=== PATIENT | female | born 2000 | race Caucasian/White ===

== ENCOUNTER 2020-12-25 11:04 | Emergency (ER) | payer OTHER, SELFPAY ==
--- NOTE | ~2020-12-25 | XR_ITS ---
EXAMINATION: XR chest 2V DATE: 12/25/2020 12:23 INDICATION: Cough and wheezing TECHNIQUE: PA and lateral views of the chest were obtained. COMPARISON: Chest radiograph dated 10/04/2019 FINDINGS: The lungs remain clear with no focal airspace opacities, pulmonary edema, pleural effusion or pneumot horax. The cardiomediastinal silhouette is normal. Visualized bones and soft tissues are unremarkable . IMPRESSION: 1. Normal chest radiograph Reviewed, dictated and finalized at location A. [facility] IMPRESSION: 1. Normal chest radiograph
[2020-12-25 11:10] VITALS: BP 121/83; PULSE 94; RESP 18; TEMP 36.8; O2SAT 100
[2020-12-25 11:59] LABS: Basophils Absolute Auto 0.1 K/mm3 (0.0-0.1); Basophils Percent Auto 0.9 % (0.2-1.2); Eosinophils Absolute Auto 0.5 K/mm3 (0-0.3); Eosinophils Percent Auto 9.4 % (0-4.4); Hemoglobin 14.2 g/dL (12.0-15.0); Immature Granulocyte Absolute 0.02 K/mm3 (0.00-0.031); Immature Granulocyte Percent A 0.4 % (0-0.5); Lymphocytes Absolute Auto 2.07 K/mm3 (0.9-3.2); Lymphocytes Percent Auto 36.6 % (18.3-44.2); Mean Corpuscular HGB Conc 33.8 g/dl (32-36); Mean Corpuscular Hemoglobin 28.5 pg (26-34); Mean Corpuscular Volume 84.3 fl (80-100); Monocytes Absolute Auto 0.4 K/mm3 (0.1-0.6); Monocytes Percent Auto 6.4 % (2.6-8.5); Neutrophils Absolute Auto 2.6 K/mm3 (1.3-6.7); Neutrophils Percent Auto 46.3 % (45.5-73.1); Platelet Count Result 223 k/mm3 (150-375); Red Blood Count 4.98 M/mm3 (4.2-5.4); Red Cell Distribution Width 13.7 % (11.5-14.5); White Blood Count 5.7 K/mm3 (4.5-10.0)
[2020-12-25] MEDS: ALBUTEROL SULFATE (*SP) AEROSOL 1 PUFF 4 PUFF INHALATION (12:28)
[2020-12-25] MEDS: DEXAMETHASONE 2 MG TABLET 10 MG PO (12:39)
--- NOTE | 2020-12-25 12:45 | ED.URI ---
HPI - URI/Sore Throat General Chief Complaint: Upper Respiratory Infection Stated Complaint: wheezing, cough Time Seen by Provider: 12/25/20 11:19 Source: patient Mode of arrival: ambulatory Limitations: no limitations History of Present Illness HPI Narrative: 20-year-old female Generally healthy takes no home meds Complains of a 3-day history of wheezing and a cough No fever, cough is essentially not productive there is just a little bit of clear phlegm intermittently She does not have a history of asthma that has been diagnosed, but she has had problems with wheezing in the past when she has had bronchitis or pneumonia Not a smoker Related Data Allergies Allergy/AdvReac Type Severity Reaction Status Date / Time No Known Allergies Allergy Verified 12/25/20 11:12 Review of Systems Review of Systems: All systems reviewed & are unremarkable except as noted in HPI and below Constitutional: Constitutional: Denies chills, Denies fatigue, Denies fever(s), Denies headache(s) and Denies weakness Eyes: Eyes: Reports no additional eye complaints and Denies change in vision ENT: Denies headache(s), Denies epistaxis, Reports nasal congestion and Denies sore throat Cardiovascular: Cardiovascular: Denies chest pain, Denies leg edema, Denies palpitations and Denies dyspnea Respiratory: Respiratory: Reports cough, Reports dyspnea and Reports wheezing Gastrointestinal: Gastrointestinal: Denies abdominal pain, Denies diarrhea, Denies nausea and Denies vomiting Genitourinary: Genitourinary: Denies hematuria, Denies urinary frequency and Denies dysuria Musculoskeletal: Musculoskeletal: Denies deformity, Denies arthralgias, Denies joint swelling, Denies muscle weakness and Denies numbness Integumentary/Breasts: Skin/Breast: Denies rash and Denies wounds Neurologic: Denies headache(s), Denies focal weakness, Denies numbness and Denies weakness Psychiatric: Psychiatric: Reports no additional psychiatric complaints Endocrine: Endocrine: Denies fatigue and Denies palpitations Hematologic/Lymphatic: Hematologic/Lymphatic: Denies easy bleeding and Denies easy bruising Allergic/Immunologic: Allergic/Immunologic: Denies wheezing PMFSH Past Medical History Medical History (Updated 12/25/20 @ 13:45 by Koko Dey MD) Migraine Pneumonia Pulmonary embolism Scoliosis UTI (urinary tract infection) Surgical History Surgical History (Updated 10/03/19 @ 23:11 by Kiet Marin) No history of previous surgery Family History Family History (Updated 10/04/19 @ 06:07 by Mayra Harris RN) Other Unknown family medical history Social History Social History (Updated 10/03/19 @ 23:12 by Kiet Marin) Smoking status: Never smoker Alcohol intake: current Drinks per week: 1 Substance use: current Substance use type: marijuana Last use: 1 week ago Gender identity (if verbalized by the patient): Female Spiritual care concerns: No Agree to blood products: Yes Exam Const: General: no acute distress, well developed, alert and awake Nutritional Appearance: well nourished Orientation/consciousness: patient oriented x3 (alert) Limitations: no limitations HENMT: Head: normocephalic and atraumatic Ears: external ears normal General nose exam: No nasal discharge present and no epistaxis Face and sinus: face symmetric Eyes: Conjunctivae: conjunctivae normal Sclera: sclerae normal EOM: EOMs intact bilaterally Neck: Neck: normal visual inspection, supple and no JVD Chest: Chest palpation & inspection: deferred Resp: Effort & Inspection: normal respiratory effort Auscultation: no rales, no rhonchi, wheezes and other (BS =) Cardio: Rate: regular rate Rhythm: regular rhythm Heart sounds: no gallops and no murmurs GI: Inspection: normal to inspection Back/Spine/Pelvis: Thoracic/Lumbar Spine: thoracic and lumbar spine normal to inspection Skin: General skin exam: normal color and
[2020-12-25 14:17] VITALS: BP 132/76; PULSE 77; RESP 16; O2SAT 100
== END 2020-12-25 14:20 | disposition home or self-care (01) ==
PROVIDERS: Emergency Provider Emergency Medicine
DX: J20.9 Acute bronchitis, unspecified (principal); D72.10 Eosinophilia, unspecified; Z87.11 Personal history of peptic ulcer disease; Z87.440 Personal history of urinary (tract) infections; M41.9 Scoliosis, unspecified
CPT/HCPCS: 36415; 71046; 85025; 99283; A9270; J8540

== ENCOUNTER 2021-02-10 09:34 | Emergency (ER) | payer OTHER, SELFPAY ==
[2021-02-10] VITALS (21 sets, daily range): BP systolic 117–139; BP diastolic 74–88; PULSE 72–134; RESP 12–27; TEMP 37.1; O2SAT 98–99
--- NOTE | ~2021-02-10 | CT_ITS ---
EXAMINATION: CTA chest PE protocol DATE: 02/10/2021 12:02 INDICATION: Chest pain. Shortness of breath. TECHNIQUE: Computed tomography angiography (CTA) of the chest was performed with 100 mL Omnipaque-350 intravenous contrast timed to evaluate the pulmonary arteries. Coronal maximum intensity projection 3D-reconstructions were created by the technologist. Automated exposure control and iterative reconst ruction technique were employed. The dose-length product was 313.62 mGy-cm. COMPARISON: Chest CT 10/04/2019 FINDINGS: There is minimal atelectasis bilaterally. There are mild groundglass opacities in the upper lobes. No pleural effusion. The heart size is normal. No pericardial effusion. There is no pulmonary embolus. The bones are unremarkable. IMPRESSION: 1. No pulmonary embolus. 2. Mild groundglass opacities in the upper lobes, consistent with inflammation versus infection. Reviewed, dictated and finalized at location A.
--- NOTE | ~2021-02-10 | XR_ITS ---
EXAMINATION: XR chest 1V portable EXAM DATE: 02/10/2021 10:14 INDICATION: Shortness of breath. TECHNIQUE: Portable AP frontal chest x-ray was obtained. Comparison is made to prior examination from 12/25/2020. FINDINGS: The lungs are clear. There are no pleural effusions. The cardiomediastinal silhouette is within normal limits. There is no pneumothorax suspected. The bones and soft tissues are unremarkab le. IMPRESSION: Normal chest x-ray exam. Reviewed, dictated and finalized at location A. IMPRESSION: Normal chest x-ray exam.
--- NOTE | 2021-02-10 09:42 | ECG_ITS ---
Measurements Intervals [place] Rate: 101 P: 68 KS: 143 QRS: 72 QRSD: 84 T: -3 QT: 341 QTc: 443 Interpretive Statements SINUS TACHYCARDIA BORDERLINE ST-T WAVE ABNORMALITY- INFERIOR LEADS BASELINE WANDER- II ,III, AVR, AVL, AVF, V1, V3 BORDERLINE ECG Electronically Signed On 02-10-2021 13:33:10 CDT by Serge Bryant D.O.
[2021-02-10 10:16] LABS: Basophils Absolute Auto 0.1 K/mm3 (0.0-0.1); Basophils Percent Auto 0.4 % (0.2-1.2); Eosinophils Absolute Auto 0.7 K/mm3 (0-0.3); Eosinophils Percent Auto 6.1 % (0-4.4); Hematocrit 44.1 % (37.0-47.0); Hemoglobin 14.8 g/dL (12.0-15.0); Immature Granulocyte Absolute 0.03 K/mm3 (0.00-0.031); Immature Granulocyte Percent A 0.3 % (0-0.5); Lymphocytes Absolute Auto 1.54 K/mm3 (0.9-3.2); Lymphocytes Percent Auto 13.7 % (18.3-44.2); Mean Corpuscular HGB Conc 33.6 g/dl (32-36); Mean Corpuscular Hemoglobin 28.7 pg (26-34); Mean Corpuscular Volume 85.5 fl (80-100); Mean Platelet Volume 11.4 fl (7.4-10.4); Monocytes Absolute Auto 0.7 K/mm3 (0.1-0.6); Monocytes Percent Auto 5.8 % (2.6-8.5); Neutrophils Absolute Auto 8.3 K/mm3 (1.3-6.7); Neutrophils Percent Auto 73.7 % (45.5-73.1); Platelet Count Result 220 k/mm3 (150-375); Red Blood Count 5.16 M/mm3 (4.2-5.4); Red Cell Distribution Width 13.6 % (11.5-14.5); White Blood Count 11.2 K/mm3 (4.5-10.0)
--- NOTE | 2021-02-10 10:19 | ED.SOB ---
HPI - SOB/Dyspnea General Chief Complaint: Shortness of Breath/Dyspnea Stated Complaint: SOB Time Seen by Provider: 02/10/21 09:55 Source: patient Mode of arrival: ambulatory Limitations: no limitations History of Present Illness HPI Narrative: This is a 20-year-old female that presents the emergency department for wheezing. Reports she had Covid in the beginning of October. Reports since she has had ongoing trouble with shortness of breath. Reports over the last couple of weeks she has become dependent on her albuterol inhaler. She has to use it every day because of shortness of breath and wheezing. Also reports a cough. Reports left-sided chest pain with deep breathing. Denies fever, congestion, or sore throat. Related Data Allergies Allergy/AdvReac Type Severity Reaction Status Date / Time No Known Allergies Allergy Verified 02/10/21 09:56 Review of Systems Review of Systems: Narrative: CONSTITUTIONAL: Denies fever ENT: Denies rhinorrhea, congestion, sore throat CARDIOVASCULAR: Reports chest pain. Denies edema. RESPIRATORY: Reports cough and dyspnea. All systems reviewed & are unremarkable except as noted in HPI and below PMFSH Past Medical History Medical History (Updated 02/10/21 @ 14:06 by Amina Kay PA-C) Migraine Pneumonia Pulmonary embolism Scoliosis UTI (urinary tract infection) Surgical History Surgical History (Updated 10/03/19 @ 23:11 by Kiet Marin) No history of previous surgery Family History Family History (Updated 10/04/19 @ 06:07 by Mayra Harris RN) Other Unknown family medical history Social History Social History (Updated 10/03/19 @ 23:12 by Kiet Marin) Smoking status: Never smoker Alcohol intake: current Drinks per week: 1 Substance use: current Substance use type: marijuana Last use: 1 week ago Gender identity (if verbalized by the patient): Female Spiritual care concerns: No Agree to blood products: Yes Exam Narrative: Exam Narrative: GENERAL: Well-appearing, well-nourished, and in no acute distress. HEAD: Normocephalic, atraumatic. EYES: EOMI. ENT: Nares clear, no rhinorrhea or epistaxis. Mucous membranes moist. Oropharynx without tonsillar hypertrophy exudate or other lesions. Bilateral TMs pearly chaidez non-bulging NECK: Supple. No adenopathy or masses. CHEST: No respiratory distress. Diffuse expiratory wheezing throughout the lungs bilaterally. No rales or rhonchi HEART: Regular rate and rhythm. No murmur heard. Normal peripheral pulses. EXTREMITIES: Normal range of motion. No edema. SKIN: Warm, dry, no rash. NEURO: No focal deficits. Alert and oriented x3. PSYCH: Normal mood and affect Course Vital Signs Vital signs: Vital Signs Temperature 98.7 F 02/10/21 09:52 Pulse Rate 104 H 02/10/21 09:52 Respiratory Rate 17 02/10/21 09:52 Blood Pressure 133/84 02/10/21 09:52 Pulse Oximetry 98 02/10/21 09:52 Temperature 98.7 F 02/10/21 09:52 Pulse Rate 134 H 02/10/21 13:30 Respiratory Rate 25 H 02/10/21 13:30 Blood Pressure 121/74 02/10/21 13:01 Pulse Oximetry 99 02/10/21 11:50 MDM - SOB/Dyspnea MDM Narrative Medical decision making narrative: Patient presents to the ER for shortness of breath and wheezing worsening over the last couple of weeks. She is afebrile and nontoxic-appearing. Tachycardic, likely due to albuterol use. CBC with mild leukocytosis to 11.2. Metabolic panel without concerning findings. Baseline troponin is negative and EKG is without concerning changes. Due to shortness of breath and tachycardia with history of PE, CTA of the chest was obtained. This did not show evidence of PE, but did show opacities in the upper lobes consistent with inflammation versus infection. Patient given steroid and nebulizer treatments with improvement. Feels better and would like to go home. Will be started on oral antibiotic for pneumonia and continued on steroid. Patient was in
[2021-02-10 10:26] LABS: INR 0.9; Prothrombin Time 12.7 Seconds (11.1-14.7)
[2021-02-10 10:27] LABS: Partial Thromboplastin Time 26.8 SECONDS (22.3-36.8)
[2021-02-10] MEDS: IPRATROPIUM BR 0.02% INH SOLN 0.5 MG/2.5 ML VIAL INHALATION ×3 (10:30→13:20)
[2021-02-10] MEDS: ALBUTEROL SULFATE NEB 2.5 MG/0.5 ML INH 5 MG INHALATION ×2 (10:30→12:08)
[2021-02-10] MEDS: predniSONE 20 MG TABLET 40 MG PO (10:31)
[2021-02-10 10:34] LABS: Anion Gap 7 mmol/L (8-16); Blood Urea Nitrogen 11 mg/dL (7-17); Carbon Dioxide 26 mmol/L (22-30); Chloride 106 mmol/L (98-107); Estimated CRCL calculation 109 ml/min; Estimated Glomerular Filt Rate > 60; Glucose 119 mg/dL (65-105); Potassium 3.6 mmol/L (3.4-5.0); Sodium 139 mmol/L (137-145)
[2021-02-10 10:44] LABS: Troponin I < 0.012 ng/mL (0.000-0.034)
[2021-02-10 10:46] LABS: D Dimer 0.33 ug/mL (<0.48)
--- NOTE | 2021-02-10 10:49 | PC.NURSE ---
Pt states she feels much better s/p med neb, non-labored resps, speaking full clear sentences, 98% RA. Last steroid therapy 1.5 month ago, I wasn't diagnosed with asthma, but I use the rescue inhaler for coughing fits, and last night I couldn't lie flat . Recovered from covid in [place]
[2021-02-10] MEDS: ACETAMINOPHEN 500 MG TABLET 1000 MG PO (12:10)
== END 2021-02-10 14:15 | disposition home or self-care (01) ==
PROVIDERS: Physician Assistant; Emergency Provider Emergency Medicine; PCP Internal Medicine
DX: J18.9 Pneumonia, unspecified organism (principal); J45.901 Unspecified asthma with (acute) exacerbation; R00.0 Tachycardia, unspecified
CPT/HCPCS: 36415; 71045; 71275; 80048; 81025; 84484; 85025; 85380; 85610; 85730; 93005; 94640; 99285; A9270; J7512; Q9967

== ENCOUNTER 2021-05-06 10:15 | Emergency (ER) | payer OTHER, SELFPAY ==
[2021-05-06 10:27] VITALS: BP 114/65; PULSE 80; RESP 16; TEMP 36.4; O2SAT 99
[2021-05-06 10:30] VITALS: BP 114/65; PULSE 80; RESP 16; TEMP 36.4; O2SAT 99
--- NOTE | 2021-05-06 10:37 | ED.GENADULT ---
HPI - General Adult General Chief complaint: Eye Problems Stated complaint: left eye redness Source: patient and RN notes reviewed Mode of arrival: ambulatory Limitations: no limitations History of Present Illness HPI narrative: 20-year-old female presents with complaints of left eye redness, irritation, some burning, and itching for 1 day. Willow reports awakened today with LT eye redness and crusted together, increasing redness. ?Slightly matted. ?No pain. ?No copious drainage. Exacerbating factor is eye opening. ?Relieving factors is closing eyes. ?Wear glasses and contact lenses, currently wearing glasses. ?No blurred vision, double vision, sensation of foreign body, or pain of eye with movement. ?LMP 04/11/21. Remains active. The patient reports she was diagnosed with COVID-19 in October 2020. ?The patient reports she received 1 VendAsta COVID-19 vaccine and is awaiting the 2nd dose now. ?The patient reports she is not waiting for the results of a COVID-19 lab test. ?The patient reports she does not have chills, weakness, or fatigue. ?The patient reports she does not have a new or worsening cough or shortness of breath. ?Denies chest pain. ?The patient reports she does not have any rhinorrhea, congestion, sore throat, loss of taste or smell, nausea, vomiting, abdominal pain, and diarrhea. ?Tolerating po intake well. ?Denies recent traveling. ?Denies concerns for COVID-19 or exposures. ?At this time, the patient is not suspected of having COVID-19. Some parts of this dictation were generated by voice recognition software and may contain typographical and/or grammatical inaccuracies. Related Data Home Medications Medication Instructions Recorded Confirmed valacyclovir 05/06/21 Allergies Allergy/AdvReac Type Severity Reaction Status Date / Time No Known Allergies Allergy Verified 02/10/21 09:56 Review of Systems Review of Systems: Narrative: CONSTITUTIONAL: Denies fever, chills, sweats. EYES: Denies visual changes. Complains of LT eye redness, itching, and irritation. ENT: Denies rhinorrhea, congestion, sore throat, otalgia. CARDIOVASCULAR: Denies chest pain, palpitations, edema. RESPIRATORY: Denies dyspnea, wheezing, cough. GASTROINTESTINAL: Denies abdominal pain, nausea, vomiting, diarrhea. SKIN: Denies rash or itching. MUSCULOSKELETAL: Denies acute back pain, joint pain, or myalgia. NEUROLOGIC: Denies numbness or focal weakness. PSYCHIATRIC: Denies anxiety or depression. All systems reviewed & are unremarkable except as noted in HPI and below. 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 Surgical History Surgical History No history of previous surgery Family History Family History (Updated 05/06/21 @ 12:32 by EDUARDO Alexandra) Father Diabetes mellitus Mother Alive and well Other Unknown family medical history Social History Social History (Updated 05/06/21 @ 12:33 by EDUARDO Alexandra) Smoking status: Never smoker Tobacco type: cigarettes Second hand tobacco smoke exposure: No Alcohol intake: current Drinks per week: 1 Substance use: current Substance use type: marijuana Last use: 1 week ago Living arrangements: with family Occupation/Education: occupation Gender identity (if verbalized by the patient): Female Sexual Orientation (if Verbalized by the Patient): Straight or Heterosexual Spiritual care concerns: No Agree to blood products: Yes Comments At time of signature, agree with the nurse past medical, surgical, social, and family history. There is no relevant family history pertinent to the presenting complaint. Exam Narrative: Exam Narrative: GENERAL: This is a well-nourished, well-de
== END 2021-05-06 10:55 | disposition home or self-care (01) ==
PROVIDERS: Emergency Provider Nurse Practitioner Family
DX: H10.32 Unspecified acute conjunctivitis, left eye (principal); J00 Acute nasopharyngitis [common cold]; J01.90 Acute sinusitis, unspecified; Z86.711 Personal history of pulmonary embolism; M41.9 Scoliosis, unspecified
CPT/HCPCS: 99213; G0463

== ENCOUNTER 2021-05-14 08:32 | Outpatient (CLI) | payer OTHER, SELFPAY ==
--- NOTE | ~2021-05-14 | US_ITS ---
EXAMINATION: US thyroid EXAM DATE: 05/14/2021 08:48 INDICATION: Thyroid nodule TECHNIQUE: Multiple grayscale and Doppler images of the thyroid were obtained (by a technologist who performed the scan) and subsequently reviewed. Individual nodules and recommendations may be reporte d in accordance with TI-RADS system as designated by the 2017 ACR White Paper TI-RADS committee. The re is no prior study for comparison. FINDINGS: Right there are lobe measures 5.0 x 2.1 x 1.9 cm, the left measuring 3.8 x 1.4 x 1.2 cm. There is miladis ogeneous thyroid echogenicity. There is a right thyroid lobe nodule measuring 1.7 x 1.6 x 1.6, solid (2 points), hypoechoic (2 point s), equal in height and width, ill-defined margin, containing punctate echogenic foci consistent with microcalcification (3 points), category TR5 for this nodule. IMPRESSION: Suspicious right thyroid lobe nodule; recommend ultrasound-guided biopsy. Reviewed, dictated and finalized at location B. IMPRESSION: Suspicious right thyroid lobe nodule; recommend ultrasound-guided b iopsy.
== END 2021-05-14 08:33 ==
PROVIDERS: PCP Internal Medicine; Visit Provider Nurse Practitioner
DX: E04.1 Nontoxic single thyroid nodule (principal)
CPT/HCPCS: 76536

== ENCOUNTER 2021-06-02 04:45 | Emergency (ER) | payer OTHER, SELFPAY ==
[2021-06-02] VITALS (8 sets, daily range): BP systolic 106–128; BP diastolic 73–86; PULSE 74–93; RESP 13–26; TEMP 36.6; O2SAT 96–100
--- NOTE | ~2021-06-02 | XR_ITS ---
EXAMINATION: XR chest 1V portable DATE: 06/02/2021 05:52 INDICATION: Shortness of breath and asthma TECHNIQUE: frontal view of the chest was obtained. COMPARISON: Chest radiograph and CT dated 02/10/21 FINDINGS: The lungs remain clear with no focal airspace opacities, pulmonary edema, pleural effusion or pneumot horax. The cardiomediastinal silhouette is normal. Visualized bones and soft tissues are unremarkable . IMPRESSION: 1. Normal chest radiograph. Reviewed, dictated and finalized at location A. IMPRESSION: 1. Normal chest radiograph.
[2021-06-02] MEDS: methylPREDNISolone SOD SUCC 125 MG VIAL IV PUSH (05:37)
--- NOTE | 2021-06-02 05:37 | ED.GENADULT ---
HPI - General Adult General Chief complaint: Asthma Stated complaint: can't breathe Time Seen by Provider: 06/02/21 05:28 History of Present Illness HPI narrative: Patient is a 20-year-old female presents the emergency department chief complaint of shortness of breath. The patient reports that she has had some episodes before in the past where she has been treated with albuterol treatments and reports over the last 2 days she has been wheezing at home patient states that a little bit of a cough but no significant productive sputum. Patient states that no fever no runny nose sore throat. Patient denies body aches abdominal pain vomiting or diarrhea. Patient reports symptoms are worse with deep inspiration and improved with rest. The patient denies use of cigarettes or vaping but does report to occasional use of marijuana with the last use on Tuesday. Related Data Home Medications Medication Instructions Recorded Confirmed valacyclovir 05/06/21 Allergies Allergy/AdvReac Type Severity Reaction Status Date / Time No Known Allergies Allergy Verified 06/02/21 04:52 Review of Systems Review of Systems: A 10 system review of systems was completed on the patient and is negative except for what is stated in the HPI. Nursing and ancillary documentation was reviewed. 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 Surgical History Surgical History No history of previous surgery Family History Family History Father Diabetes mellitus Mother Alive and well Other Unknown family medical history Social History Social History Smoking status: Never smoker Tobacco type: cigarettes Second hand tobacco smoke exposure: No Alcohol intake: current Drinks per week: 1 Substance use: current Substance use type: marijuana Last use: 1 week ago Gender identity (if verbalized by the patient): Female Spiritual care concerns: No Agree to blood products: Yes Exam Narrative: GENERAL: Well-appearing, well-nourished, and in no acute distress. HEAD: Normocephalic, atraumatic. EYES: PERRLA and EOMI. ENT: Nares clear, no rhinorrhea or epistaxis. Mucous membranes moist. NECK: Supple. CHEST: Inspiratory next Tory wheezes present bilaterally. No respiratory distress. HEART: Regular rate and rhythm. No murmur heard. Normal peripheral pulses. ABDOMEN: Soft, nontender, nondistended, normal active bowel sounds. EXTREMITIES: Normal range of motion. No edema. SKIN: Warm, dry, no rash. NEURO: No focal deficits. Alert and oriented x3. PSYCH: Normal mood and affect. Course Vital Signs Vital signs: Vital Signs Temperature 36.6 C 06/02/21 04:49 Pulse Rate 91 06/02/21 04:49 Respiratory Rate 25 H 06/02/21 04:49 Blood Pressure 128/86 06/02/21 04:49 Pulse Oximetry 99 06/02/21 04:49 Temperature 36.6 C 06/02/21 04:49 Pulse Rate 74 06/02/21 06:01 Respiratory Rate 16 06/02/21 06:01 Blood Pressure 106/84 06/02/21 06:01 Pulse Oximetry 99 06/02/21 06:27 Medical Decision Making Vital Signs Vital Signs: Vital Signs Temperature 36.6 C 06/02/21 04:49 Pulse Rate 91 06/02/21 04:49 Respiratory Rate 25 H 06/02/21 04:49 Blood Pressure 128/86 06/02/21 04:49 Pulse Oximetry 99 06/02/21 04:49 Temperature 36.6 C 06/02/21 04:49 Pulse Rate 74 06/02/21 06:01 Respiratory Rate 16 06/02/21 06:01 Blood Pressure 106/84 06/02/21 06:01 Pulse Oximetry 99 06/02/21 06:27 Discharge Plan Discharge Clinical Impression: Asthma with acute exacerbation Qualifiers: Asthma s
[2021-06-02] MEDS: IPRATROPIUM BR 0.02% INH SOLN 0.5 MG/2.5 ML VIAL INHALATION (05:51)
[2021-06-02] MEDS: ALBUTEROL SULFATE NEB 2.5 MG/0.5 ML INH 5 MG INHALATION (05:51)
== END 2021-06-02 06:52 | disposition home or self-care (01) ==
PROVIDERS: Emergency Provider Emergency Medicine; PCP Internal Medicine
DX: J45.901 Unspecified asthma with (acute) exacerbation (principal)
CPT/HCPCS: 71045; 94640; 96374; 99284; J2930

== ENCOUNTER 2021-07-27 19:33 | Emergency (ER) | payer OTHER, SELFPAY ==
--- NOTE | ~2021-07-27 | XR_ITS ---
EXAMINATION: XR chest 2V DATE: 07/27/2021 20:03 INDICATION: Productive cough and shortness of breath TECHNIQUE: PA and lateral views of the chest are obtained. COMPARISON: 06/02/2021 FINDINGS: The lungs are free of acute opacities. There is no pleural effusion or pneumothorax. The ca rdiomediastinal silhouette is normal. The visualized bones and soft tissues are unremarkable. IMPRESSION: 1. No acute cardiopulmonary abnormality. Reviewed, dictated and finalized at location A.
[2021-07-27 19:44] VITALS: BP 132/88; PULSE 100; RESP 20; TEMP 36.6; O2SAT 97
[2021-07-27] MEDS: ALBUTEROL SULFATE NEB 2.5 MG/0.5 ML INH 5 MG INHALATION ×2 (21:49→23:00)
[2021-07-27 21:50] VITALS: PULSE 119; RESP 16
[2021-07-27] MEDS: IPRATROPIUM BR 0.02% INH SOLN 0.5 MG/2.5 ML VIAL INHALATION ×2 (21:50→23:00)
[2021-07-27 21:55] VITALS: PULSE 99; RESP 16
[2021-07-27] MEDS: predniSONE 20 MG TABLET 40 MG PO (21:58)
--- NOTE | 2021-07-27 22:09 | ED.URI ---
HPI - URI/Sore Throat General Chief Complaint: Upper Respiratory Infection Stated Complaint: shortness of breath Time Seen by Provider: 07/27/21 21:26 Source: patient Mode of arrival: ambulatory Limitations: no limitations History of Present Illness HPI Narrative: This is a 20 year old female that presents to the ER for cold symptoms x 3 days. Reports cough, congestion, sore throat. Reports she has been wheezing. She has been using her albuterol inhaler with little relief. Denies fever. Related Data Home Medications Medication Instructions Recorded Confirmed valacyclovir 05/06/21 Allergies Allergy/AdvReac Type Severity Reaction Status Date / Time No Known Allergies Allergy Verified 07/27/21 21:25 Review of Systems Review of Systems: CONSTITUTIONAL: Denies fever ENT: Reports rhinorrhea, congestion, sore throat CARDIOVASCULAR: Denies chest pain RESPIRATORY: Reports cough 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 Surgical History Surgical History No history of previous surgery Family History Family History Father Diabetes mellitus Mother Alive and well Other Unknown family medical history Social History Social History Smoking status: Never smoker Tobacco type: cigarettes Second hand tobacco smoke exposure: No Alcohol intake: current Drinks per week: 1 Substance use: current Substance use type: marijuana Last use: 1 week ago Gender identity (if verbalized by the patient): Female Sexual Orientation (if Verbalized by the Patient): Straight or Heterosexual Spiritual care concerns: No Agree to blood products: Yes Exam Narrative: GENERAL: Well-appearing, well-nourished, and in no acute distress. HEAD: Normocephalic, atraumatic. EYES: EOMI. ENT: Nares clear, no rhinorrhea or epistaxis. Mucous membranes moist. Oropharynx without tonsillar hypertrophy exudate or other lesions. Bilateral TMs pearly chaidez non-bulging NECK: Supple. No adenopathy or masses. CHEST: No respiratory distress. Scattered expiratory wheezes noted. No rales or rhonchi HEART: Regular rate and rhythm. No murmur heard. Normal peripheral pulses. EXTREMITIES: Normal range of motion. No edema. SKIN: Warm, dry, no rash. NEURO: No focal deficits. Alert and oriented x3. PSYCH: Normal mood and affect Course Vital Signs Vital signs: Vital Signs Temperature 97.8 F 07/27/21 19:44 Pulse Rate 100 07/27/21 19:44 Respiratory Rate 20 07/27/21 19:44 Blood Pressure 132/88 07/27/21 19:44 Pulse Oximetry 97 07/27/21 19:44 Temperature 97.8 F 07/27/21 19:44 Pulse Rate 96 07/27/21 23:06 Respiratory Rate 16 07/27/21 23:06 Blood Pressure 132/88 07/27/21 19:44 Pulse Oximetry 97 07/27/21 19:44 MDM - URI/Sore Throat MDM Narrative Medical decision making narrative: Patient presents to the emergency department for cold symptoms present over the last couple of days. She did have a negative Covid test today. She is afebrile and nontoxic-appearing. Oxygen saturation is normal on room air. Wheezing noted upon arrival. This cleared with steroid and nebulizer treatments. Chest x-ray is without acute cardiopulmonary abnormality. Patient will be treated with continued oral steroids and albuterol for asthma exacerbation. She is to follow-up with her primary care doctor. She was given warnings to return to the ER Imaging Data Radiologist's impression: ITS Impressions Chest X-Ray 07/27/21 20:07 IMPRESSION: 1. No
[2021-07-27 23:01] VITALS: PULSE 82; RESP 16
[2021-07-27 23:06] VITALS: PULSE 96; RESP 16
[2021-07-27 23:27] VITALS: BP 126/75; PULSE 70; RESP 18; O2SAT 99
== END 2021-07-27 23:29 | disposition home or self-care (01) ==
PROVIDERS: Emergency Provider Emergency Medicine; PCP Internal Medicine
DX: J45.21 Mild intermittent asthma with (acute) exacerbation (principal); Z87.01 Personal history of pneumonia (recurrent); Z87.440 Personal history of urinary (tract) infections; F17.210 Nicotine dependence, cigarettes, uncomplicated
CPT/HCPCS: 71046; 94640; 99284; J7512

== ENCOUNTER 2021-10-30 09:44 | Emergency (ER) | payer OTHER, SELFPAY ==
[2021-10-30 10:04] VITALS: BP 122/87; PULSE 105; RESP 14; TEMP 36.1; O2SAT 97
[2021-10-30 11:50] VITALS: BP 121/78; PULSE 89; RESP 14; O2SAT 95
== END 2021-10-30 11:50 | disposition left against medical advice (07) ==
PROVIDERS: PCP Internal Medicine
DX: Z53.21 Procedure and treatment not carried out due to patient leaving prior to being seen by health care provider (principal)
CPT/HCPCS: 99199

== ENCOUNTER 2021-11-01 23:54 | Emergency (ER) | payer OTHER, SELFPAY ==
[2021-11-01 23:56] VITALS: BP 116/75; PULSE 109; RESP 20; TEMP 37; O2SAT 100
--- NOTE | 2021-11-02 00:44 | ED.GENADULT ---
HPI - General Adult General Chief complaint: Asthma Stated complaint: Asthma, need refill, wheezing Time Seen by Provider: 11/02/21 00:26 Source: patient and RN notes reviewed Limitations: no limitations History of Present Illness HPI narrative: 21-year-old female presented to the emergency department for evaluation of wheezing which she believes is secondary to an asthma exacerbation. Patient does have asthma and has been out of her inhaler for the last few days. Patient began experiencing some shortness of breath and wheeze this evening. Patient states she does smoke marijuana but has not smoked recently. Patient denies smoking cigarettes. Related Data Home Medications Medication Instructions Recorded Confirmed valacyclovir 05/06/21 Allergies Allergy/AdvReac Type Severity Reaction Status Date / Time No Known Allergies Allergy Verified 11/02/21 01:01 Review of Systems Review of Systems: All systems reviewed & are unremarkable except as noted in HPI and below Constitutional: Constitutional: Reports no additional constitutional complaints Eyes: Eyes: Reports no additional eye complaints ENT: Reports system reviewed and no additional complaints, except as documented Cardiovascular: Cardiovascular: Reports no additional cardiovascular complaints Respiratory: Respiratory: Denies cough, Reports dyspnea and Reports wheezing Gastrointestinal: Gastrointestinal: Reports no additional gastrointestinal complaints Musculoskeletal: Musculoskeletal: Reports no additional musculoskeletal complaints Integumentary/Breasts: Skin/Breast: Reports system reviewed and no additional complaints, except as docu Neurologic: Reports system reviewed and no additional complaints, except as documented Psychiatric: Psychiatric: Reports no additional psychiatric complaints Endocrine: Endocrine: Reports no additional endocrine complaints Hematologic/Lymphatic: Hematologic/Lymphatic: Reports no additional hematologic/lymphatic complaints Allergic/Immunologic: Allergic/Immunologic: Reports no additional allergic/immunologic complaints FOR[facility], LAT[facility] Past Medical History Medical History HSV-1 (herpes simplex virus 1) infection Migraine Pneumonia Pulmonary embolism Scoliosis UTI (urinary tract infection) 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 Surgical History Surgical History No history of previous surgery Family History Family History Father Diabetes mellitus Mother Alive and well Other Unknown family medical history Social History Social History Smoking status: Never smoker Tobacco type: cigarettes Second hand tobacco smoke exposure: No Alcohol intake: current Drinks per week: 1 Substance use: current Substance use type: marijuana Last use: 1 week ago Gender identity (if verbalized by the patient): Female Sexual Orientation (if Verbalized by the Patient): Straight or Heterosexual Spiritual care concerns: No Agree to blood products: Yes Exam Narrative: APPEARANCE: Well appearing, no pain in distress, well-nourished. HEAD: normocephalic, atraumatic. EYES: PERRLA/EOMI, conjunctivae clear. NOSE: Normal no drainage EARS:TMS clear with good light reflex. THROAT: Pharynx clear, no exudate. NECK: Supple. No adenopathy, no masses. RESPIRATORY: Airway patent, respirations nonlabored. Patient does have wheezing bilaterally. CARDIOVASCULAR: Regular rate and rhythm without murmurs rubs or gallops. ABDOMINAL: Soft, nontender, nondistended, normal bowel sounds MUSCULOSKELETAL: Moves all extremities. Strength/ROM intact, No edema, No calf tenderness. NEURO: Alert. Cranial nerves II through XII intact. Good gait. Good coordination SKIN: Warm, dry. Normal Color PSYCHIATRIC:
[2021-11-02 01:00] VITALS: PULSE 79; RESP 20
[2021-11-02] MEDS: ALBUTEROL SULFATE NEB 2.5 MG/0.5 ML INH 5 MG INHALATION (01:00)
[2021-11-02 01:08] VITALS: PULSE 77; RESP 20
== END 2021-11-02 02:36 | disposition home or self-care (01) ==
LOC: ANHED 11-02 01:31
PROVIDERS: Emergency Provider Emergency Medicine; PCP Internal Medicine
DX: J45.21 Mild intermittent asthma with (acute) exacerbation (principal); Z86.711 Personal history of pulmonary embolism; Z87.440 Personal history of urinary (tract) infections; Z87.01 Personal history of pneumonia (recurrent)
CPT/HCPCS: 94640; 99283

== ENCOUNTER 2021-11-16 08:45 | Emergency (ER) | payer OTHER, SELFPAY ==
[2021-11-16 09:01] VITALS: BP 106/75; PULSE 77; RESP 18; TEMP 36; O2SAT 99
--- NOTE | 2021-11-16 09:25 | ED.FEMALEGU ---
HPI - Female Genitourinary General Chief complaint: Urogenital-Female Stated complaint: Yeast Infection Time Seen by Provider: 11/16/21 09:25 Source: patient, RN notes reviewed and old records reviewed Mode of arrival: ambulatory Limitations: no limitations History of Present Illness HPI Narrative: 21-year-old female presents to the [facility] care with concerns of a yeast infection. Has been having chronic yeast infections for the last couple months and has been working with Dr. Jorge. Currently waiting on a EXAMINER RATING CLERK from [facility] opinion. Has been given antibiotics along with Diflucan and terconazole in the past. Patient reports extreme irritation, thick white discharge. Has been try to get all her EXAMINER RATING CLERK since Tuesday for a prescription for that to her, as well Fevers, nausea, vomiting or diarrhea. No chest pain or shortness of breath. No abdominal pain. MD elicited complaint: vaginal discharge (thichk white) Related Data Home Medications Medication Instructions Recorded Confirmed valacyclovir 05/06/21 Allergies Allergy/AdvReac Type Severity Reaction Status Date / Time No Known Allergies Allergy Verified 11/16/21 09:34 Review of Systems Review of Systems: All systems reviewed & are unremarkable except as noted in HPI and below Constitutional: Constitutional: Reports no additional constitutional complaints, Denies chills and Denies fatigue Eyes: Eyes: Reports no additional eye complaints ENT: Reports system reviewed and no additional complaints, except as documented Cardiovascular: Cardiovascular: Reports no additional cardiovascular complaints Respiratory: Respiratory: Reports no additional respiratory complaints Gastrointestinal: Gastrointestinal: Reports no additional gastrointestinal complaints, Denies abdominal pain, Denies diarrhea, Denies nausea and Denies vomiting Genitourinary: Genitourinary: Reports as per HPI, Denies hematuria, Denies nocturia, Denies genital lesions, Denies dysuria, Denies pelvic pain, Denies flank pain and Reports vaginal discharge Comments: Vaginal discomfort Musculoskeletal: Musculoskeletal: Reports no additional musculoskeletal complaints and Denies back pain Integumentary/Breasts: Skin/Breast: Reports system reviewed and no additional complaints, except as docu Neurologic: Reports system reviewed and no additional complaints, except as documented Psychiatric: Psychiatric: Reports no additional psychiatric complaints Endocrine: Endocrine: Reports no additional endocrine complaints and Denies fatigue Allergic/Immunologic: Allergic/Immunologic: Reports no additional allergic/immunologic complaints PMFSH Past Medical History Medical History HSV-1 (herpes simplex virus 1) infection Migraine Pneumonia Pulmonary embolism Scoliosis UTI (urinary tract infection) 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 Surgical History Surgical History No history of previous surgery Family History Family History Father Diabetes mellitus Mother Alive and well Other Unknown family medical history Social History Social History Smoking status: Never smoker Tobacco type: cigarettes Second hand tobacco smoke exposure: No Alcohol intake: current Drinks per week: 1 Substance use: current Substance use type: marijuana Last use: 1 week ago Gender identity (if verbalized by the patient): Female Sexual Orientation (if Verbalized by the Patient): Straight or Heterosexual Spiritual care concerns: No Agree to blood products: Yes Comments At the time of my signature, I reviewed and agree with the nursing past medical, surgical, social, and family history. There is no relevant family history pertinent to the patient complaint. Exam Const: General: healthy appearing, no a
== END 2021-11-16 09:45 | disposition home or self-care (01) ==
PROVIDERS: Emergency Provider Nurse Practitioner; PCP Internal Medicine
DX: B37.3 Candidiasis of vulva and vagina (principal); Z86.711 Personal history of pulmonary embolism
CPT/HCPCS: 99213; G0463

== ENCOUNTER 2022-02-02 15:36 | Emergency (ER) | payer OTHER, SELFPAY ==
[2022-02-02 15:43] VITALS: BP 129/80; PULSE 76; RESP 16; TEMP 36.3; O2SAT 100
--- NOTE | 2022-02-02 15:43 | ED.URI ---
HPI - URI/Sore Throat General Chief Complaint: Upper Respiratory Infection Stated Complaint: sore throat Time Seen by Provider: 02/02/22 15:43 Source: patient, family, RN notes reviewed and old records reviewed Mode of arrival: ambulatory Limitations: no limitations History of Present Illness HPI Narrative: 21-year-old female presents to the [facility] with complaints of a sore throat for 2 days. Wants to be checked for strep. Denies any other symptoms. No ear pain, nose pain, runny nose, shortness of breath. Denies chest pain or abdominal pain. No nausea vomiting or diarrhea. Denies fevers MD elicited complaint: sore throat Related Data Allergies Allergy/AdvReac Type Severity Reaction Status Date / Time No Known Allergies Allergy Verified 02/02/22 15:39 Review of Systems Review of Systems: All systems reviewed & are unremarkable except as noted in HPI and below Constitutional: Constitutional: Reports no additional constitutional complaints, Denies chills, Denies fever(s) and Denies headache(s) Eyes: Eyes: Reports no additional eye complaints ENT: Reports as per HPI, Denies vertigo, Denies dizziness, Denies headache(s), Denies nasal congestion and Reports sore throat Cardiovascular: Cardiovascular: Reports no additional cardiovascular complaints, Denies chest pain, Denies syncope, Denies rapid heart rate and Denies dyspnea Respiratory: Respiratory: Reports no additional respiratory complaints, Denies cough, Denies dyspnea and Denies wheezing Gastrointestinal: Gastrointestinal: Reports no additional gastrointestinal complaints, Denies abdominal pain, Denies diarrhea, Denies nausea and Denies vomiting Musculoskeletal: Musculoskeletal: Reports no additional musculoskeletal complaints and Denies numbness Integumentary/Breasts: Skin/Breast: Reports system reviewed and no additional complaints, except as docu Neurologic: Reports system reviewed and no additional complaints, except as documented, Denies vertigo, Denies dizziness, Denies syncope, Denies headache(s), Denies focal weakness and Denies numbness Psychiatric: Psychiatric: Reports no additional psychiatric complaints Allergic/Immunologic: Allergic/Immunologic: Reports no additional allergic/immunologic complaints and Denies wheezing PMFSH Past Medical History Medical History HSV-1 (herpes simplex virus 1) infection Migraine Pneumonia Pulmonary embolism Scoliosis UTI (urinary tract infection) 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 Surgical History Surgical History No history of previous surgery Family History Family History Father Diabetes mellitus Mother Alive and well Other Unknown family medical history Social History Social History Smoking status: Never smoker Tobacco type: cigarettes Second hand tobacco smoke exposure: No Alcohol intake: current Drinks per week: 1 Substance use: current Substance use type: marijuana Last use: 1 week ago Gender identity (if verbalized by the patient): Female Sexual Orientation (if Verbalized by the Patient): Straight or Heterosexual Spiritual care concerns: No Agree to blood products: Yes Comments At the time of my signature, I reviewed and agree with the nursing past medical, surgical, social, and family history. There is no relevant family history pertinent to the patient complaint. Exam Const: General: cooperative, healthy appearing, no acute distress, well developed and alert Nutritional Appearance: well nourished Orientation/consciousness: patient oriented x3 Limitations: no limitations HENMT: Head: normal to inspection General nose exam: Normal external nose present and Normal nasal mucous membranes and turbinates present Face and sinus: normal facial exam Mouth: Yes Normal
== END 2022-02-02 16:10 | disposition home or self-care (01) ==
PROVIDERS: Emergency Provider Nurse Practitioner; PCP Internal Medicine
DX: B34.9 Viral infection, unspecified (principal); F12.90 Cannabis use, unspecified, uncomplicated; M41.9 Scoliosis, unspecified; Z86.711 Personal history of pulmonary embolism
CPT/HCPCS: 87081; 87880; 99213; G0463

== ENCOUNTER 2022-03-08 07:41 | Emergency (ER) | payer OTHER, SELFPAY ==
[2022-03-08] VITALS (9 sets, daily range): BP systolic 115–123; BP diastolic 78–86; PULSE 75–114; RESP 10–22; TEMP 37.1; O2SAT 95–99
[2022-03-08] MEDS: ALBUTEROL SULFATE NEB 2.5 MG/0.5 ML INH 5 MG INHALATION (07:55)
[2022-03-08] MEDS: IPRATROPIUM BR 0.02% INH SOLN 0.5 MG/2.5 ML VIAL INHALATION (07:56)
[2022-03-08] MEDS: predniSONE 20 MG TABLET 60 MG PO (07:57)
--- NOTE | 2022-03-08 09:31 | ED.ASTHMA ---
HPI - Asthma General Chief Complaint: Asthma Stated Complaint: asthma Time Seen by Provider: 03/08/22 07:48 Source: patient Mode of arrival: ambulatory Limitations: no limitations History of Present Illness HPI Narrative: 21-year-old with a history of asthma here with complaints of shortness of breath for past 1 day. Patient states that she ran out of her inhaler. She denies any fever or chills has occasional nonproductive cough. complaint: asthma attack Onset (ago): day(s) (1) Severity: moderate Associated symptoms: none Asthma History: childhood onset Related Data Current Asthma Therapy: none Allergies Allergy/AdvReac Type Severity Reaction Status Date / Time No Known Allergies Allergy Verified 02/02/22 15:39 Review of Systems Review of Systems: All systems reviewed & are unremarkable except as noted in HPI and below Constitutional: Constitutional: Reports no additional constitutional complaints Eyes: Eyes: Reports no additional eye complaints ENT: Reports system reviewed and no additional complaints, except as documented Cardiovascular: Cardiovascular: Reports no additional cardiovascular complaints Respiratory: Respiratory: Reports as per HPI Gastrointestinal: Gastrointestinal: Reports no additional gastrointestinal complaints Musculoskeletal: Musculoskeletal: Reports no additional musculoskeletal complaints PMFSH Past Medical History Medical History HSV-1 (herpes simplex virus 1) infection Migraine Pneumonia Pulmonary embolism Scoliosis UTI (urinary tract infection) 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 Surgical History Surgical History No history of previous surgery Family History Family History Father Diabetes mellitus Mother Alive and well Other Unknown family medical history Social History Social History Smoking status: Never smoker Tobacco type: cigarettes Second hand tobacco smoke exposure: No Alcohol intake: current Drinks per week: 1 Substance use: current Substance use type: marijuana Last use: 1 week ago Gender identity (if verbalized by the patient): Female Sexual Orientation (if Verbalized by the Patient): Straight or Heterosexual Spiritual care concerns: No Agree to blood products: Yes Exam Narrative: GENERAL: Well-appearing, well-nourished, and in no acute distress. HEAD: Normocephalic, atraumatic. EYES: PERRLA and EOMI. NECK: Supple. CHEST: No acute respiratory distress, bilateral expiratory wheeze HEART: Regular rate and rhythm. No murmur heard. Normal peripheral pulses. ABDOMEN: Soft, nontender, nondistended, normal active bowel sounds. EXTREMITIES: Normal range of motion. No edema. SKIN: Warm, dry, no rash. NEURO: No focal deficits. Alert and oriented x3. PSYCH: Normal mood and affect. Course Course Emergency Course: Patient did receive 1 DuoNeb and steroids here in the ER. She is feeling much better area auscultated her lungs good air entry very minimal bilateral wheeze. She states she is feeling much better. Vital Signs Vital signs: Vital Signs Temperature 37.1 C 03/08/22 07:46 Pulse Rate 93 03/08/22 07:46 Respiratory Rate 20 03/08/22 07:46 Pulse Oximetry 98 03/08/22 07:46 Temperature 37.1 C 03/08/22 07:46 Pulse Rate 86 03/08/22 08:20 Respiratory Rate 15 03/08/22 08:20 Blood Pressure 115/80 03/08/22 08:20 Pulse Oximetry 99 03/08/22 08:20 Discharge Plan Discharge Clinical Impression: Asthma exacerbation Patient Disposition: Home, Self-Care Condition: Stable Instructions: Asthma (ED) Additional Instructions: Use inhalers as prescribed and prednisone twice a day for 5 days, follow-up with your primary doctor. Prescriptions: New prednisone 20 mg tablet 20 mg PO B
== END 2022-03-08 09:49 | disposition home or self-care (01) ==
PROVIDERS: Emergency Provider Family Medicine; PCP Internal Medicine
DX: J45.901 Unspecified asthma with (acute) exacerbation (principal); Z86.711 Personal history of pulmonary embolism; Z87.01 Personal history of pneumonia (recurrent); Z87.440 Personal history of urinary (tract) infections
CPT/HCPCS: 94640; 99283; J7512

== ENCOUNTER 2022-07-22 01:54 | Emergency (ER) | payer OTHER, SELFPAY ==
[2022-07-22] VITALS (14 sets, daily range): BP systolic 108–138; BP diastolic 65–85; PULSE 94–124; RESP 16–29; TEMP 36.8–38.2; O2SAT 98–100
--- NOTE | ~2022-07-22 | XR_ITS ---
EXAMINATION: XR chest 2V DATE: 07/22/2022 05:21 INDICATION: Fever. TECHNIQUE: Frontal and lateral views of the chest were obtained. COMPARISON: Chest 2 views 07/27/2021, chest CT 02/10/2021 FINDINGS: The chest demonstrates clear lungs without pneumonia, pleural effusion, or pneumothorax. Th e heart size is normal. IMPRESSION: 1. No acute cardiopulmonary disease. Reviewed, dictated and finalized at location A.
--- NOTE | 2022-07-22 02:05 | ED.GENADULT ---
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 Surgical History Surgical History No history of previous surgery Family History Family History Father Diabetes mellitus Mother Alive and well Other Unknown family medical history Social History Social History Smoking status: Never smoker Tobacco type: cigarettes Second hand tobacco smoke exposure: No Alcohol intake: current Drinks per week: 1 Substance use: current Substance use type: marijuana Last use: 1 week ago Gender identity (if verbalized by the patient): Female Sexual Orientation (if Verbalized by the Patient): Straight or Heterosexual Spiritual care concerns: No Agree to blood products: Yes Course Vital Signs Vital signs: Vital Signs Temperature 100.8 F H 07/22/22 01:55 Pulse Rate 108 H 07/22/22 01:55 Respiratory Rate 07/22/22 01:55 Blood Pressure 132/81 07/22/22 01:55 Pulse Oximetry 07/22/22 01:55 Oxygen Delivery Room Air 07/22/22 01:55 Temperature 100.8 F H 07/22/22 01:55 Pulse Rate 108 H 07/22/22 01:55 Respiratory Rate 07/22/22 01:55 Blood Pressure 132/81 07/22/22 01:55 Pulse Oximetry 07/22/22 01:55 Oxygen Delivery Room Air 07/22/22 01:55 Medical Decision Making Vital Signs Vital Signs: Vital Signs Temperature 100.8 F H 07/22/22 01:55 Pulse Rate 108 H 07/22/22 01:55 Respiratory Rate 07/22/22 01:55 Blood Pressure 132/81 07/22/22 01:55 Pulse Oximetry 07/22/22 01:55 Oxygen Delivery Room Air 07/22/22 01:55 Temperature 100.8 F H 07/22/22 01:55 Pulse Rate 108 H 07/22/22 01:55 Respiratory Rate 18 07/22/22 01:55 Blood Pressure 132/81 07/22/22 01:55 Pulse Oximetry 99 07/22/22 01:55 Oxygen Delivery Room Air 07/22/22 01:55 Discharge Plan Discharge Prescriptions: No Action albuterol sulfate 90 mcg/actuation HFA aerosol inhaler 2 puff inhalation QID PRN (Reason: shortness of breath or wheezing) Qty: 1 0RF prednisone 20 mg tablet 20 mg PO BID Qty: 10 0RF albuterol sulfate 90 mcg/actuation HFA aerosol inhaler 2 puff inhalation QID PRN (Reason: shortness of breath or wheezing) Qty: 8.5 4RF Follow-up/Referrals: Cody,MD Tonya [Primary Care Provider] -
[2022-07-22 03:43] LABS: Hematocrit 42.8 % (37.0-47.0); Hemoglobin 14.6 g/dL (12.0-15.0); Mean Corpuscular HGB Conc 34.1 g/dl (32-36); Mean Corpuscular Hemoglobin 28.9 pg (26-34); Mean Corpuscular Volume 84.6 fl (80-100); Mean Platelet Volume 11.3 fl (7.4-10.4); Platelet Count Result 152 k/mm3 (150-375); Red Blood Count 5.06 M/mm3 (4.2-5.4); Red Cell Distribution Width 12.6 % (11.5-14.5); White Blood Count 4.3 K/mm3 (4.5-10.0)
[2022-07-22 03:47] LABS: Appearance Urine Slightly Cloudy (Clear); Bilirubin Urine Negative (Negative); Color Urine Yellow (Yellow); Glucose Urine UA Negative (Negative); Ketones Urine Negative (Negative); Leukocyte Esterase Ur Trace LEU/UL (Negative); Nitrate Urine Negative (Negative); Protein Urine Negative (Negative); Specific Grav Ur 1.025 (1.001-1.035); Urobilinogen Urine 0.2 mg/dL (<2.0); pH Urine 5.5 (5.0-9.0)
[2022-07-22 03:53] LABS: Alanine Aminotransferase 70 U/L (6-35); Albumin Level 4.3 g/dL (3.5-5.1); Alkaline Phosphatase 71 U/L (38-126); Anion Gap 14 mmol/L (8-16); Aspartate Amino Transferase 80 U/L (14-36); Bilirubin,Total 0.7 mg/dL (0.2-1.3); Blood Urea Nitrogen 6 mg/dL (7-17); Calcium 8.5 mg/dL (8.4-10.2); Carbon Dioxide 18 mmol/L (22-30); Chloride 101 mmol/L (98-107); Estimated CRCL calculation 98 ml/min; Estimated Glomerular Filt Rate > 60; Glucose 109 mg/dL (65-110); Mucus Urine Rare /lpf; Potassium 3.7 mmol/L (3.4-5.0); RBC Urine 0-2 /hpf (0-2); Sodium 133 mmol/L (137-145); Squamous Epithelial Cell Urine Few /hpf (Few)
[2022-07-22 03:54] LABS: Lactic Acid Reflex 1.1 mmol/L (0.7-2.0)
[2022-07-22 04:07] LABS: Add Urine Microscopic? YES; Blood Urine Trace-Intact (Negative)
[2022-07-22 04:15] LABS: Band Neutrophils Percent 37 % (0-6); Basophils Absolute Manual 0.04 K/mm3 (0.0-0.1); Basophils Percent Manual 1 % (0-1); Metamyelocytes Percent 3 %; Monocytes Absolute Manual 0.08 K/mm3 (0.1-0.90); Monocytes Percent Manual 2 % (3-9); Neutrophils Absolute Manual 3.44 K/mm3 (1.7-7.2); Neutrophils Percent Manual 43 % (46-73); Platelet Estimate Adequate (Adequate); Total Cells Counted 100
[2022-07-22 04:16] LABS: Atypical Lymphocytes Present; Smudge Cells FEW
[2022-07-22 04:17] LABS: Crenated RBC 1+ (NORMAL); Schistocytes None Seen (NORMAL)
[2022-07-22 04:21] LABS: Influenza A QL RT-PCR Negative (Negative); Influenza B QL RT-PCR Negative (Negative); SARS-CoV-2 RNA PCR Negative
--- NOTE | 2022-07-22 04:33 | ED.FEVER ---
HPI - Fever General Chief Complaint: Fever Stated Complaint: migraine 2 days, chills, tingling fingers Time Seen by Provider: 07/22/22 03:57 Source: patient and RN notes reviewed Mode of arrival: ambulatory Limitations: no limitations History of Present Illness HPI Narrative: This is a 21 year old female who presents for evaluation of multiple complaints. Patient has had headache for 2 days that has been constant. She describes headache as a severe migraine. She has associated tingling to both hands. She also has nausea, chills and bilateral lower back pain. She has been taking hot showers because she feels like she can not get warm. She denies sore throat, runny nose, abdominal pain, cough or shortness of breath. She took tylenol last night around 10 pm. She took at home covid test that was negative. Related Data Allergies Allergy/AdvReac Type Severity Reaction Status Date / Time No Known Allergies Allergy Verified 07/22/22 03:34 Review of Systems Review of Systems: All systems reviewed & are unremarkable except as noted in HPI and below Constitutional: Constitutional: Reports chills, Reports fatigue and Reports fever(s) ENT: Denies nasal congestion and Denies sore throat Respiratory: Respiratory: Denies chest congestion and Denies cough Gastrointestinal: Gastrointestinal: Denies abdominal pain, Denies bloating and Reports nausea Musculoskeletal: Musculoskeletal: Reports myalgias Neurologic: Denies syncope and Reports headache(s) [facility] Past Medical History Medical History HSV-1 (herpes simplex virus 1) infection Migraine Pneumonia Pulmonary embolism Scoliosis UTI (urinary tract infection) 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 Surgical History Surgical History No history of previous surgery Family History Family History Father Diabetes mellitus Mother Alive and well Other Unknown family medical history Social History Social History Smoking status: Never smoker Tobacco type: cigarettes Second hand tobacco smoke exposure: No Alcohol intake: current Drinks per week: 1 Substance use: current Substance use type: marijuana Last use: 1 week ago Gender identity (if verbalized by the patient): Female Sexual Orientation (if Verbalized by the Patient): Straight or Heterosexual Spiritual care concerns: No Agree to blood products: Yes Exam Const: General: no acute distress and alert Nutritional Appearance: well nourished Orientation/consciousness: patient oriented x3 Limitations: no limitations HENMT: Head: normal to inspection Face and sinus: normal facial exam Eyes: EOM: EOMs intact bilaterally Chest: Chest palpation & inspection: normal inspection of the chest Resp: Effort & Inspection: normal respiratory effort Auscultation: clear to auscultation bilaterally Cardio: Rate: tachycardic Rhythm: regular rhythm Heart sounds: no murmurs GI: GI Palp: Yes Soft to palpation, No Tenderness to palpation present (GI), No Guarding due to palpation present (GI) and No Rigid due to palpation Auscultation: normal bowel sounds : General: Yes no CVA tenderness Skin: Rashes: no rashes Wounds: no wounds Neuro: General: patient oriented x3, moves all extremities and CN's II-XI intact bilaterally Extrem: General: normal to inspection Psych: Appearance: grossly normal Mental Status: mental status grossly normal Affect: normal affect Attitude: cooperative Course Reevaluation(s) Reevaluation #1: PAtient states she feels better. I discussed she likely have viral infection. I discussed LP for meningitis. She does not seem to have bacterial meningitis. Patient declines. She wants to go home . Date: 07/22/22 Time: 06:47 Vital Signs Vital signs: Vital S
[2022-07-22] MEDS: SODIUM CHLORIDE 0.9% IV 1,000 ML 999 ML IV CONT ×2 (05:08→05:16)
[2022-07-22] MEDS: KETOROLAC 30 MG/ML VIAL (*BKC) IV PUSH (05:08)
[2022-07-22] MEDS: diphenhydrAMINE HCl INJ 50 MG/ML VIAL 25 MG IV PUSH (05:09)
[2022-07-22] MEDS: METOCLOPRAMIDE HCL INJ 10 MG/2 ML VIAL IV PUSH (05:14)
[2022-07-22 05:15] LABS: Lipase 80 U/L (23-300)
== END 2022-07-22 07:32 | disposition home or self-care (01) ==
PROVIDERS: Emergency Provider General Practice; PCP Internal Medicine
DX: B34.9 Viral infection, unspecified (principal); Z20.822 Contact with and (suspected) exposure to COVID-19; Z87.01 Personal history of pneumonia (recurrent); Z86.711 Personal history of pulmonary embolism; Z87.440 Personal history of urinary (tract) infections
CPT/HCPCS: 36415; 71046; 80053; 81001; 81025; 83605; 83690; 85025; 87502; 96361; 96374; 96375; 99284; C9803; J1200; J1885; J2765; J7030; U0003; U0005

== ENCOUNTER 2022-07-23 23:16 | Emergency (ER) | payer OTHER, SELFPAY ==
[2022-07-23 23:24] VITALS: BP 137/80; PULSE 113; RESP 18; TEMP 36.7; O2SAT 100
--- NOTE | 2022-07-24 01:17 | ED.GENADULT ---
HPI - General Adult General Chief complaint: Unspecified Stated complaint: lumbar puncture Time Seen by Provider: 07/23/22 23:57 History of Present Illness HPI narrative: 21-year-old female presenting with 4 days of viral syndrome including headache, nausea, fevers and chills, and muscle aches. She had been seen here 2 days ago for similar symptoms and states that her symptoms today are essentially the same and have not worsened. She does have a history of migraines which she states that she is having now, but states she also has not had migraines in years. Related Data Allergies Allergy/AdvReac Type Severity Reaction Status Date / Time No Known Allergies Allergy Verified 07/23/22 23:18 Review of Systems Review of Systems: CONST: Chills HEENT: No sore throat C/V: No chest pain RESP: No cough GI: Nausea : No dysuria. M/S: No joint pain. SKIN: No rash. 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 Surgical History Surgical History No history of previous surgery Family History Family History Father Diabetes mellitus Mother Alive and well Other Unknown family medical history Social History Social History Smoking status: Never smoker Tobacco type: cigarettes Second hand tobacco smoke exposure: No Alcohol intake: current Drinks per week: 1 Substance use: current Substance use type: marijuana Last use: 1 week ago Gender identity (if verbalized by the patient): Female Sexual Orientation (if Verbalized by the Patient): Straight or Heterosexual Spiritual care concerns: No Agree to blood products: Yes Exam Narrative: EXAMINATION OF ORGAN SYSTEMS/BODY AREAS: Constitutional: Vital signs per nursing GENERAL: No acute distress, non-toxic appearing. Resting comfortably in bed. HEAD: Normal with no signs of head trauma. EYES: EOMI, conjunctiva normal ENT: No midline tenderness, full ROM of neck without any meningismus, endorses some discomfort to paraspinal muscles LUNGS: Nonlabored breathing. HEART: [Regular rate and rhythm] ABD: [Soft], [nontender to palpation] EXT: Normal range of motion, ambulating through the ER with normal steady gait SKIN: [No rashes or lesions.] NEURO: [Alert and oriented x 3, speaking full sentences. No focal sensory or strength deficits.] PSYCH: Normal affect Course Vital Signs Vital signs: Vital Signs Temperature 98.1 F 07/23/22 23:24 Pulse Rate 113 H 07/23/22 23:24 Respiratory Rate 18 07/23/22 23:24 Blood Pressure 137/80 07/23/22 23:24 Pulse Oximetry 100 07/23/22 23:24 Oxygen Delivery Room Air 07/23/22 23:24 Temperature 98.1 F 07/23/22 23:24 Pulse Rate 113 H 07/23/22 23:24 Respiratory Rate 18 07/23/22 23:24 Blood Pressure 137/80 07/23/22 23:24 Pulse Oximetry 100 07/23/22 23:24 Oxygen Delivery Room Air 07/23/22 23:24 Medical Decision Making MDM Narrative Medical decision making narrative: ED COURSE AND MEDICAL DECISION MAKING: This 21-year-old female patient presents with symptoms most suggestive of viral illness. She was here because she had been offered an LP 2 days ago and returned because she was still having migraines. She is overall extremely well-appearing, alert and with normal mental status, ambulating with steady gait and clear speech, does not appear to be in distress, without any focal neurologic deficits, full range of motion of her neck without any meningismus. I discussed with the patient that I did feel there was a low probability of her having bacterial meningitis, artem
[2022-07-24] MEDS: METOCLOPRAMIDE HCL INJ 10 MG/2 ML VIAL IV PUSH (01:43)
== END 2022-07-24 02:04 | disposition home or self-care (01) ==
PROVIDERS: Emergency Provider Emergency Medicine; PCP Internal Medicine
DX: G43.909 Migraine, unspecified, not intractable, without status migrainosus (principal); B34.9 Viral infection, unspecified; Z86.711 Personal history of pulmonary embolism; Z87.01 Personal history of pneumonia (recurrent); Z87.440 Personal history of urinary (tract) infections
CPT/HCPCS: 96374; 99284; A9270; J2765

== ENCOUNTER 2022-11-09 09:09 | Emergency (ER) | payer OTHER, SELFPAY ==
[2022-11-09 09:22] VITALS: BP 129/76; PULSE 82; RESP 16; TEMP 35.9; O2SAT 99
--- NOTE | 2022-11-09 09:31 | ED.EAR ---
HPI - Ear Problem General Chief complaint: Ear Stated complaint: ear infection Time Seen by Provider: 11/09/22 09:31 Source: patient, RN notes reviewed and old records reviewed Mode of arrival: ambulatory Limitations: no limitations History of Present Illness HPI Narrative: 22-year-old female presents to the [facility] with concerns for an ear infection. Complaints of bilateral ear pain since last night. Has had sinus issues for about 3 days. Has only taken Tylenol. Related Data Allergies Allergy/AdvReac Type Severity Reaction Status Date / Time No Known Allergies Allergy Verified 11/09/22 09:33 Review of Systems Review of Systems: All systems reviewed & are unremarkable except as noted in HPI and below Constitutional: Constitutional: Reports no additional constitutional complaints Eyes: Eyes: Reports no additional eye complaints ENT: Reports as per HPI, Reports otalgia, Reports nasal congestion and Reports post nasal drip Cardiovascular: Cardiovascular: Reports no additional cardiovascular complaints, Denies chest pain and Denies dyspnea Respiratory: Respiratory: Reports no additional respiratory complaints, Denies chest congestion, Denies cough and Denies dyspnea Gastrointestinal: Gastrointestinal: Reports no additional gastrointestinal complaints, Denies abdominal pain, Denies nausea and Denies vomiting Musculoskeletal: Musculoskeletal: Reports no additional musculoskeletal complaints Integumentary/Breasts: Skin/Breast: Reports system reviewed and no additional complaints, except as docu Neurologic: Reports system reviewed and no additional complaints, except as documented Psychiatric: Psychiatric: Reports no additional psychiatric complaints Allergic/Immunologic: Allergic/Immunologic: Reports no additional allergic/immunologic complaints [facility] Past Medical History Medical History HSV-1 (herpes simplex virus 1) infection Migraine Pneumonia Pulmonary embolism Scoliosis UTI (urinary tract infection) 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 Surgical History Surgical History No history of previous surgery Family History Family History Father Diabetes mellitus Mother Alive and well Other Unknown family medical history Social History Social History Smoking status: Never smoker Tobacco type: cigarettes Second hand tobacco smoke exposure: No Alcohol intake: current Drinks per week: 1 Substance use: current Substance use type: marijuana Last use: 1 week ago Gender identity (if verbalized by the patient): Female Sexual Orientation (if Verbalized by the Patient): Straight or Heterosexual Spiritual care concerns: No Agree to blood products: Yes Comments At the time of my signature, I reviewed and agree with the nursing past medical, surgical, social, and family history. There is no relevant family history pertinent to the patient complaint. Exam Const: General: cooperative, healthy appearing, comfortable, no acute distress, well developed, alert and well nourished Nutritional Appearance: well nourished Orientation/consciousness: patient oriented x3 Limitations: no limitations HENMT: Head: normal to inspection Ears: hearing grossly normal bilaterally, external ears normal and TM abnormal bulging on the left and erythematous on the left Face/Nose/Sinus: Normal external nose present, Normal nares present, Abnormal mucous membranes and turbinates present boggy bilateral, Nasal discharge present and normal facial exam Face and sinus: normal facial exam Mouth: Yes Normal oral and palatal mucosa present, Yes lip normal and Yes moist mucous membranes Throat: posterior oropharynx normal, uvula midline and postnasal drainage Eyes: General: appearance normal, both eyes and all relat
== END 2022-11-09 09:40 | disposition home or self-care (01) ==
PROVIDERS: Emergency Provider Nurse Practitioner
DX: H65.02 Acute serous otitis media, left ear (principal); J32.9 Chronic sinusitis, unspecified; F12.90 Cannabis use, unspecified, uncomplicated; Z86.711 Personal history of pulmonary embolism; M41.9 Scoliosis, unspecified
CPT/HCPCS: 99213; G0463

== ENCOUNTER 2022-12-30 10:39 | Emergency (ER) | payer OTHER, SELFPAY ==
--- NOTE | ~2022-12-30 | XR_ITS ---
EXAMINATION: XR chest 2V 12/30/2022 11:32 INDICATION: Shortness of breath. Wheezing. PROCEDURE: 2 view chest COMPARISON: Comparison to multiple prior studies sequentially, with oldest reviewed study dated 02/10. FINDINGS: The lungs are clear. The cardiomediastinal silhouette is within normal limits. There are no pleural effusions. There is no pneumothorax suspected. IMPRESSION: 1: NO ACUTE CARDIOPULMONARY DISEASE. Reviewed, dictated and finalized at location [facility]
[2022-12-30 10:48] VITALS: BP 120/82; PULSE 110; RESP 16; TEMP 36.6; O2SAT 99
--- NOTE | 2022-12-30 11:09 | ED.URI ---
HPI - URI/Sore Throat General Chief Complaint: Upper Respiratory Infection Stated Complaint: sob Time Seen by Provider: 12/30/22 11:09 Source: patient, RN notes reviewed and old records reviewed Mode of arrival: ambulatory Limitations: no limitations History of Present Illness HPI Narrative: 22-year-old female presents to the [facility] with complaints of wheezing, cough and shortness of breath for 2 days. Denies any chest pain. Denies fevers. Patient she states that this happens whenever she gets a simple cold. States it has been going on at least 2 years since she had COVID. Has tried following up with her primary care provider who said she does not need anything Also requesting a new primary care Related Data Allergies Allergy/AdvReac Type Severity Reaction Status Date / Time No Known Allergies Allergy Verified 12/30/22 11:00 Review of Systems Review of Systems: All systems reviewed & are unremarkable except as noted in HPI and below Constitutional: Constitutional: Reports no additional constitutional complaints Eyes: Eyes: Reports no additional eye complaints ENT: Reports system reviewed and no additional complaints, except as documented Cardiovascular: Cardiovascular: Reports no additional cardiovascular complaints, Denies chest pain and Denies dyspnea Respiratory: Respiratory: Reports as per HPI, Denies chest congestion, Reports cough, Reports dyspnea and Reports wheezing Gastrointestinal: Gastrointestinal: Reports no additional gastrointestinal complaints, Denies abdominal pain, Denies nausea and Denies vomiting Musculoskeletal: Musculoskeletal: Reports no additional musculoskeletal complaints Integumentary/Breasts: Skin/Breast: Reports system reviewed and no additional complaints, except as docu Neurologic: Reports system reviewed and no additional complaints, except as documented Psychiatric: Psychiatric: Reports no additional psychiatric complaints Allergic/Immunologic: Allergic/Immunologic: Reports no additional allergic/immunologic complaints [facility] Past Medical History Medical History HSV-1 (herpes simplex virus 1) infection Migraine Pneumonia Pulmonary embolism Scoliosis UTI (urinary tract infection) 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 Surgical History Surgical History No history of previous surgery Family History Family History Father Diabetes mellitus Mother Alive and well Other Unknown family medical history Social History Social History (Reviewed 12/30/22 @ 13:39 by MIO Paiz Smoking status: Never smoker Tobacco type: cigarettes Second hand tobacco smoke exposure: No Alcohol intake: current Drinks per week: 1 Substance use: current Substance use type: marijuana Last use: 1 week ago Living arrangements: with family Occupation/Education: occupation Gender identity (if verbalized by the patient): Female Sexual Orientation (if Verbalized by the Patient): Straight or Heterosexual Spiritual care concerns: No Agree to blood products: Yes Comments At the time of my signature, I reviewed and agree with the nursing past medical, surgical, social, and family history. There is no relevant family history pertinent to the patient complaint. Exam Const: General: cooperative, healthy appearing, comfortable, no acute distress, well developed, alert and well nourished Nutritional Appearance: well nourished and obese Orientation/consciousness: patient oriented x3 Limitations: no limitations HENMT: Head: normal to inspection Ears: hearing grossly normal bilaterally and external ears normal Face/Nose/Sinus: Normal external nose present, Normal nares present, Normal nasal mucous membranes and turbinates present and normal facial exam Face and sinus: normal facial exam Mouth: Yes Normal oral and
[2022-12-30] MEDS: predniSONE 20 MG TABLET 40 MG PO (11:36)
[2022-12-30] MEDS: IPRATROPIUM BR 0.02% INH SOLN 0.5 MG/2.5 ML VIAL INHALATION (11:37)
[2022-12-30] MEDS: ALBUTEROL SULFATE NEB 2.5 MG/3 ML INH INHALATION (11:37)
== END 2022-12-30 12:30 | disposition home or self-care (01) ==
PROVIDERS: Emergency Provider Nurse Practitioner; PCP Internal Medicine
DX: J40 Bronchitis, not specified as acute or chronic (principal); Z86.711 Personal history of pulmonary embolism
CPT/HCPCS: 71046; 81025; 94640; 99213; G0463; J7512

== ENCOUNTER 2023-04-15 09:00 | Emergency (ER) | payer OTHER, SELFPAY ==
[2023-04-15 09:16] VITALS: BP 140/87; PULSE 79; RESP 16; TEMP 36.4; O2SAT 99
--- NOTE | 2023-04-15 09:28 | ED.FEMALEGU ---
HPI - Female Genitourinary General Chief complaint: Urogenital-Female Stated complaint: UTI Time Seen by Provider: 04/15/23 09:18 Source: patient and RN notes reviewed Mode of arrival: ambulatory Limitations: no limitations History of Present Illness HPI Narrative: Patient presents today with a 2 day history of urinary frequency and dysuria with right low back pain that started this morning. Denies hematuria or abdominal pain. Patient took a left over pie radium from her mother last night around 11:00 p.m., which has been helping with her dysuria. No recent antibiotic use. Related Data Allergies Allergy/AdvReac Type Severity Reaction Status Date / Time No Known Allergies Allergy Verified 04/15/23 09:17 Review of Systems Review of Systems: CONSTITUTIONAL: Denies body aches, fever, chills, or sweats. EYES: Denies visual changes, redness, or discharge. ENT: Denies rhinorrhea, congestion, sore throat, or otalgia. CARDIOVASCULAR: Denies chest pain, palpitations, or edema. RESPIRATORY: Denies cough or dyspnea. GASTROINTESTINAL: Denies abdominal pain, nausea, vomiting, or diarrhea. GENITOURINARY: Denies hematuria.+ dysuria, frequency SKIN: Denies rash, itching, or wounds. MUSCULOSKELETAL: Denies joint pain, or myalgia.+ right back pain NEUROLOGIC: Denies headache, numbness, tingling, or weakness. PSYCH: Denies depression or anxiety. 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 Surgical History Surgical History No history of previous surgery Family History Family History Father Diabetes mellitus Mother Alive and well Other Unknown family medical history Social History Social History Smoking status: Never smoker Tobacco type: cigarettes Second hand tobacco smoke exposure: No Alcohol intake: current Drinks per week: 1 Substance use: current Substance use type: marijuana Last use: 1 week ago Living arrangements: with family Occupation/Education: occupation Gender identity (if verbalized by the patient): Female Sexual Orientation (if Verbalized by the Patient): Straight or Heterosexual Spiritual care concerns: No Agree to blood products: Yes Comments At time of signature, I have reviewed and agree with nursing past medical, surgical, social and family history unless otherwise noted. Please see nursing chart for further information. There is no relevant family history pertinent to the presenting complaint Exam Narrative: GENERAL: Well-appearing, well-nourished, and in no acute distress. HEAD: Normocephalic, atraumatic. EYES: EOMI. No redness or drainage. Conjunctivae normal. ENT: Mucous membranes pink and moist. NECK: Normal AROM. Supple. No lymphadenopathy. CHEST: No respiratory distress. Clear to auscultation. HEART: Regular rate and rhythm. No murmur appreciated. Normal peripheral pulses. ABDOMEN: Soft, nontender, nondistended, normal active bowel sounds.-CVAT EXTREMITIES: Normal range of motion. No edema. SKIN: Warm, dry, no rash. Capillary refill normal. Normal skin turgor. NEURO: No focal deficits. Alert and oriented x3. Gait steady. PSYCH: Normal affect. No signs of depression or anxiety. Course Course Level of Care: Express Care Visit Vital Signs Vital signs: Vital Signs Temperature 97.6 F 04/15/23 09:16 Pulse Rate 79 04/15/23 09:16 Respiratory Rate 16 04/15/23 09:16 Blood Pressure 140/87 04/15/23 09:16 Pulse Oximetry 99 04/15/23 09:16 Oxygen Delivery Room Air 04/15/23 09:16 Temperature 97.6 F 04/15/23 09:16 Pulse Rate 79
== END 2023-04-15 09:48 | disposition home or self-care (01) ==
PROVIDERS: Emergency Provider Nurse Practitioner
DX: N30.00 Acute cystitis without hematuria (principal); B96.20 Unspecified Escherichia coli [E. coli] as the cause of diseases classified elsewhere; Z86.711 Personal history of pulmonary embolism
CPT/HCPCS: 87077; 87086; 87186; 99213; G0463

== ENCOUNTER 2023-07-25 09:10 | Emergency (ER) | payer OTHER, SELFPAY ==
[2023-07-25 09:28] VITALS: BP 124/84; PULSE 76; RESP 16; TEMP 36.5; O2SAT 100
--- NOTE | 2023-07-25 10:11 | ED.FEMALEGU ---
HPI - Female Genitourinary General Chief complaint: Urogenital-Female Stated complaint: urinary issue Time Seen by Provider: 07/25/23 10:11 Source: patient Mode of arrival: ambulatory Limitations: no limitations History of Present Illness HPI Narrative: 22-year-old female presents with complaint of urinary frequency, urgency, dysuria for 3 days. This morning she began having pelvic pressure, cramping. Has taken several doses of azo. Afebrile. Denies nausea vomiting. All systems reviewed and negative except as noted above. Related Data Allergies Allergy/AdvReac Type Severity Reaction Status Date / Time No Known Allergies Allergy Verified 07/25/23 09:51 Review of Systems Review of Systems: CONSTITUTIONAL: Denies fever, chills, or sweats. EYES: Denies visual changes, redness, or discharge. ENT: Denies rhinorrhea, congestion, sore throat, or otalgia. CARDIOVASCULAR: Denies chest pain, palpitations, or edema. RESPIRATORY: Denies cough or dyspnea. GASTROINTESTINAL: Denies abdominal pain, nausea, vomiting, or diarrhea. GENITOURINARY: Reports dysuria, frequency, urgency. Denies hematuria. SKIN: Denies rash or itching. MUSCULOSKELETAL: Denies back pain, joint pain, or myalgia. NEUROLOGIC: Denies headache, numbness, or weakness. PSYCHIATRIC: Denies anxiety or depression. All other systems reviewed are negative, except as documented in HPI. 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 Surgical History Surgical History No history of previous surgery Family History Family History Father Diabetes mellitus Mother Alive and well Other Unknown family medical history Social History Social History Smoking status: Never smoker Tobacco type: cigarettes Second hand tobacco smoke exposure: No Alcohol intake: current Drinks per week: 1 Substance use: current Substance use type: marijuana Last use: 1 week ago Living arrangements: with family Occupation/Education: occupation Gender identity (if verbalized by the patient): Female Sexual Orientation (if Verbalized by the Patient): Straight or Heterosexual Spiritual care concerns: No Agree to blood products: Yes Comments At time of signature, agree with nursing past medical, surgical, social and family history. There is no relevant family history pertinent to the presenting complaint. Exam Narrative: GENERAL: This is a well-nourished, well-developed patient, in no apparent distress. HEAD: normocephalic, atraumatic. EYES: PERRL. Sclera clear/white. Vision is grossly intact. EARS: External ears normal NOSE: External nose normal NECK: Neck supple, non-tender without lymphadenopathy, masses or thyromegaly. CARDIOVASCULAR: Regular rate and rhythm without murmurs, gallops, or rubs. RESPIRATORY: Clear to auscultation. Breath sounds equal bilaterally. No wheezes, rales, or rhonchi. SKIN: warm, Dry, intact with no suspicious lesions or rash, good texture and turgor. NEURO: awake, alert, and oriented to person, place and time. There were no obvious focal neurologic abnormalities. EXTREMITIES: No joint tenderness, effusion, or edema noted. Course Course Level of Care: Express Care Visit Vital Signs Vital signs: Vital Signs Temperature 36.5 C 07/25/23 09:28 Pulse Rate 76 07/25/23 09:28 Respiratory Rate 16 07/25/23 09:28 Blood Pressure 124/84 07/25/23 09:28 Pulse Oximetry 100 07/25/23 09:28 Oxygen Delivery Room Air 07/25/23 09:28 Temperature 36.5 C 07/25/23 09:28 Pulse Rate 76 07/25/23 09:28 Respiratory Ra
== END 2023-07-25 10:23 | disposition home or self-care (01) ==
PROVIDERS: Emergency Provider Nurse Practitioner Family
DX: N39.0 Urinary tract infection, site not specified (principal)
CPT/HCPCS: 81003; 87077; 87086; 87186; 99213; G0463

== ENCOUNTER 2023-09-07 09:10 | Emergency (ER) | payer OTHER, SELFPAY ==
[2023-09-07 09:30] VITALS: BP 116/77; PULSE 76; RESP 14; TEMP 36.9
--- NOTE | 2023-09-07 09:41 | ED.URI ---
HPI - URI/Sore Throat General Chief Complaint: Upper Respiratory Infection Stated Complaint: cough, wheezing Time Seen by Provider: 09/07/23 09:38 Source: patient Mode of arrival: ambulatory Limitations: no limitations History of Present Illness HPI Narrative: 22-year-old female history of asthma presented for complaint of coughing and wheezing for about 3 days with occasional chest tightness. She states she has been sick with URI symptoms for about 2 weeks which have improved. Endorses or daughter in preschool has brought him several viruses. She denies cp, palpitations, nausea, vomiting, fevers or chills. Using albuterol inhaler frequently throughout the day and night. Related Data Allergies Allergy/AdvReac Type Severity Reaction Status Date / Time No Known Allergies Allergy Verified 09/07/23 09:14 Review of Systems Review of Systems: CONSTITUTIONAL: Denies body aches, fever, chills, or sweats. EYES: Denies visual changes, redness, or discharge. ENT: Denies rhinorrhea, congestion, sore throat, or otalgia. CARDIOVASCULAR: Denies chest pain, palpitations, or edema. RESPIRATORY: Reports cough, sob, wheezing. GASTROINTESTINAL: Denies abdominal pain, nausea, vomiting, or diarrhea. GENITOURINARY: Denies dysuria or hematuria. SKIN: Denies rash, itching, or wounds. MUSCULOSKELETAL: Denies back pain, joint pain, or myalgia. NEUROLOGIC: Denies headache, numbness, tingling, or weakness. 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 Surgical History Surgical History No history of previous surgery Family History Family History Father Diabetes mellitus Mother Alive and well Other Unknown family medical history Social History Social History Smoking status: Never smoker Tobacco type: cigarettes Second hand tobacco smoke exposure: No Alcohol intake: current Drinks per week: 1 Substance use: current Substance use type: marijuana Last use: 1 week ago Living arrangements: with family Occupation/Education: occupation Gender identity (if verbalized by the patient): Female Sexual Orientation (if Verbalized by the Patient): Straight or Heterosexual Spiritual care concerns: No Agree to blood products: Yes Comments At time of signature, I have reviewed and agree with nursing past medical, surgical, social and family history unless otherwise noted. Please see nursing chart for further information. There is no relevant family history pertinent to the presenting complaint Exam Narrative: GENERAL: Well-appearing, in no acute distress. EYES: EOMI. No redness or drainage. Conjunctivae normal. ENT: Mucous membranes pink and moist. No rhinorrhea. TMs normal bilaterally. Throat normal. Uvula midline. NECK: Normal AROM. Supple. CHEST: No respiratory distress. Inspiratory and expiratory wheezing to all eaton. Speaks full sentences HEART: Regular rate and rhythm. No murmur appreciated. ABDOMEN: Soft, nontender, nondistended, normal active bowel sounds. SKIN: Warm, dry, no rash. Capillary refill normal. Normal skin turgor. NEURO: Alert and oriented x3. Gait steady. PSYCH: Normal affect. Course Course Emergency Course: Patient is aware of diagnosis, understands and agrees to treatment plan. Anticipatory guidance given. Patient agrees to follow-up as directed and is aware of reasons to seek care at the emergency department. Portions of this record may have been created with voice recognition software Level of Care: Express Care Visit
[2023-09-07] MEDS: IPRATROPIUM BR 0.02% INH SOLN 0.5 MG/2.5 ML VIAL INHALATION (09:54)
[2023-09-07] MEDS: ALBUTEROL SULFATE NEB 2.5 MG/3 ML INH INHALATION (09:54)
== END 2023-09-07 10:31 | disposition home or self-care (01) ==
PROVIDERS: Emergency Provider Nurse Practitioner Family
DX: J45.901 Unspecified asthma with (acute) exacerbation (principal); F12.90 Cannabis use, unspecified, uncomplicated; M41.9 Scoliosis, unspecified; Z86.711 Personal history of pulmonary embolism
CPT/HCPCS: 94640; 99213; G0463